=== PATIENT | male | born 1960 | race Caucasian/White ===

== ENCOUNTER 2017-09-12 12:56 | Inpatient (IN) | payer BC, OTHER ==
[2017-09-12] VITALS (7 sets, daily range): BP systolic 102–132; BP diastolic 58–104; PULSE 66–132; RESP 12–18; TEMP 97.6–98.2; O2SAT 96–99
[~2017-09-12 12:56] MED LIST: EC-N375T3 PO
[2017-09-12 13:44] LABS: AUTOMATED NEUTROPHIL # 6.3 TH/MM3 (1.8-7.7); BASOPHIL # 0.1 TH/MM3 (0-0.2); BASOPHIL % 0.7 % (0.0-2.0); EOSINOPHIL # 0.1 TH/MM3 (0-0.4); EOSINOPHIL % 0.8 % (0.0-4.0); HEMATOCRIT 43.8 % (39.0-51.0); HEMOGLOBIN 15.5 GM/DL (13.0-17.0); LYMPHOCYTE # 1.5 TH/MM3 (1.0-4.8); MEAN CELL VOLUME 89.7 FL (80.0-100.0); MEAN CORPUSCULAR HEMOGLOBIN 31.7 PG (27.0-34.0); MEAN CORPUSCULAR HGB CONC 35.3 % (32.0-36.0); MEAN PLATELET VOLUME 7.9 FL (7.0-11.0); MONO % 7.2 % (0.0-8.0); MONOCYTE # 0.6 TH/MM3 (0-0.9); NEUT % 73.3 % (16.0-70.0); PLATELET COUNT 279 TH/MM3 (150-450); RED BLOOD COUNT 4.89 MIL/MM3 (4.50-5.90); RED CELL DISTRIBUTION WIDTH 12.4 % (11.6-17.2); WHITE BLOOD COUNT 8.6 TH/MM3 (4.0-11.0)
[2017-09-12] MEDS ORDERED: DILTIAZEM INJ 125 MG in SODIUM CHLORIDE 0.9% INJ 100 ML IV PRN (13:45)
[2017-09-12] MEDS ORDERED: ASPIRIN 325 MG TAB PO ONE (13:45)
[2017-09-12] MEDS ORDERED: DILTIAZEM HCL 25 MG/5 ML VIAL IV PUSH ONE (13:45)
[2017-09-12 13:57] LABS: PROTHROMBIN TIME - PATIENT 9.8 SEC (9.8-11.6)
--- NOTE | 2017-09-12 13:58 | RADRPT ---
EXAM DATE/TIME: 09/12/2017 13:26 [place] COMPARISON: No previous studies available for comparison. INDICATIONS : Chest pains with shortness of breath, sweats, nausea. MEDICAL HISTORY : Myocardial infarction. SURGICAL HISTORY : None. ENCOUNTER: Initial ACUITY: 1 day PAIN SCORE: 8/10 LOCATION: Left chest FINDINGS: AP and lateral views of the chest demonstrate the lungs to be symmetrically aerated without evidence of mass, infiltrate or effusion. The cardiomediastinal contours are unremarkable. Osseous structure s are intact. CONCLUSION: Normal examination. Ilir Kathleen Jr., MD on September 12, 2017 at 13:55 Board Certified Radiologist. This report was verified electronically.
[2017-09-12 14:26] LABS: BICARBONATE 26.3 MEQ/L (21.0-32.0); BLOOD UREA NITROGEN 13 MG/DL (7-18); CALCIUM 9.9 MG/DL (8.5-10.1); CHLORIDE 100 MEQ/L (98-107); CREATININE 1.52 MG/DL (0.60-1.30); GLOMERULAR FILTRATION RATE 48 ML/MIN (>89); GLUCOSE,RANDOM 149 MG/DL (74-106); SODIUM (NA) 135 MEQ/L (136-145); TROPONIN I LESS THAN 0.02 NG/ML (0.02-0.05)
--- NOTE | 2017-09-12 14:56 | PD ---
HPI Chief Complaint: Chest Pain Time Seen by Provider: 13:33 Travel History International Travel<30 days: No Contact w/Intl Traveler<30days: No Traveled to known affect area: No History of Present Illness HPI 56-year-old male that presents to the ED for evaluation of chest pain and palpitations. Patient reports that he's had this since around 11:00 today. Per patient is severe. Per patient he does have a history of ACS and he was told that he had a heart attack at some point but he is never had a stent or CABG. Per patient he is managed medically. He apparently was evaluated by beater operator earlier this month and had a full set of testing that was essentially unremarkable. Apparently this was his first visit he was getting evaluated by cardiology. Per patient he went to the [facility] but he cannot tell me who was the provider who took care of him. I provided a list of names but he cannot give me an answer of who saw him. Per patient the pain is pressure-like. Per patient he feels like the heart is palpitating and the pain per patient is 7 out of 10. He did took an aspirin when this started. Per patient he accepted 2. He denies taking nitroglycerin. He denies any history of atrial fibrillation and arrhythmia in the past. He states that he has a history of smoking and continues to smoke and as well as high cholesterol and hypertension. Denies any urinary or bowel movement issues. No nausea or vomiting. No numbness or tingling. No radiation of the pain. Per patient is mainly on the left side of the chest. PFSH Past Medical History Cardiovascular Problems: Yes High Cholesterol: Yes Chest Pain: Yes Congestive Heart Failure: Yes Diabetes: No Hypertension: Yes Respiratory: Yes Influenza Vaccination: No Past Surgical History Surgical History: No Previous Surgery Family History Family Myocardial Infarction: Yes (father ()) Family Hypercholesterolemia: Yes Social History Alcohol Use: Yes (5-6 beers couple times/wek) Tobacco Use: Yes (1PPD) Substance Use: No Allergies-Medications (Allergen,Severity, Reaction): Coded Allergies: No Known Allergies (Unverified Adverse Reaction, Unknown, 09/12/17) Reported Meds & Prescriptions Reported Meds & Active Scripts Active Review of Systems Except as stated in HPI: all other systems reviewed are Neg Physical Exam Narrative GENERAL: SKIN: Warm and dry. HEAD: Atraumatic. Normocephalic. EYES: Pupils equal and round. No scleral icterus. No injection or drainage. ENT: No nasal bleeding or discharge. Mucous membranes pink and moist. Tongue is midline. No uvula deviation. NECK: Trachea midline. No JVD. CARDIOVASCULAR: Irregular rate and rhythm. No obvious murmurs, S3, S4 were hard to assess secondary to significant tachyarrhythmia RESPIRATORY: No accessory muscle use. Clear to auscultation. Breath sounds equal bilaterally. GASTROINTESTINAL: Abdomen soft, non-tender, nondistended. Hepatic and splenic margins not palpable. MUSCULOSKELETAL: Extremities without clubbing, cyanosis, or edema. No obvious deformities. NEUROLOGICAL: Awake and alert. No obvious cranial nerve deficits. Motor grossly within normal limits. Five out of 5 muscle strength in the arms and legs. Normal speech. PSYCHIATRIC: Appropriate mood and affect; insight and judgment normal. Data Data Last Documented VS Vital Signs Date Time Temp Pulse Resp B/P (MAP) Pulse Ox O2 Delivery O2 Flow Rate FiO2 09/12/17 13:52 106 12 120/65 (83) 96 Room Air 09/12/17 12:59 98.2 Orders Orders Electrocardiogram (09/12/17 13:11) Complete Blood Count With Diff (09/12/17 13:11) Basic Metabolic Panel (Bmp) (09/12/17 13:11) Ckmb (Isoenzyme) Profile (09/12/17 13:11) Troponin I (09/12/17 13:11) Iv Access Insert/Monitor (09/12/17 13:11) Ecg Monitoring (09/12/17 13:11) Oxygen Administration (09/12/17 13:11) Oximetry (09/12/17 13:11) Chest, Ap & Lat (09/12/17 ) Coag Profile (09/12/17 13:33) Aspirin (Aspirin) (09/12/17 13:45) Diltiazem Inj (Cardizem Inj) (09/12/17 13:45) Vital Signs (Adult) Q15MX4,Q4H (09/12/17 13:44) Poly Operator / Telemetry BHUPINDER.Q8H (09/12/17 13:44) Cardiac Rhythm BHUPINDER.Q8H (09/12/17 13:44) Notify Dr: Other (09/12/17 13:44) Diltiazem Inj (Cardizem Inj) (09/12/17 13:45) Admit Order (Ed Use Only) (09/12/17 15:15) Thyroid Stimulating Hormone (09/12/17 15:15) Consult Cardiology (09/12/17 ) Admit To Inpatient (09/12/17 ) Vital Signs (Adult) Q4H (09/12/17 15:14) Activity Oob With Assistance (09/12/17 15:14) Bedside Glucose BHUPINDER.CSUGAR (09/12/17 15:14) Poly Operator / Telemetry .CONTINUOUS (09/12/17 15:14) Intake + Output BHUPINDER.QSHIFT (09/12/17 15:14) Diet Heart Healthy (09/12/17 Dinner) Sodium Chlor 0.45% 1000 Ml Inj (12 Ns 1 (09/12/17 15:14) Sodium Chloride 0.9% Flush (Ns Flush) (09/12/17 15:15) Sodium Chloride 0.9% Flush (Ns Flush) (09/12/17 21:00) Comprehensive Metabolic Panel (09/13/17 06:00) Complete Blood Count With Diff (09/13/17 06:00) Case Management Consult (09/12/17 15:14) Heparin Inj (Heparin Inj) (09/12/17 15:15) Naloxone Inj (Narcan Inj) (09/12/17 15:15) Magnesium Hydroxide Liq (Milk Of Magnesi (09/12/17 15:15) Sennosides (Senokot) (09/12/17 15:15) Bisacodyl Supp (Dulcolax Supp) (09/12/17 15:15) Lactulose Liq (Lactulose Liq) (09/12/17 15:15) Inpatient Certification (09/12/17 ) Troponin I (09/12/17 19:00) Troponin I (09/13/17 01:00) Electrocardiogram (09/12/17 19:00) Electrocardiogram (09/13/17 01:00) Aspirin Ec (Ecotrin Ec) (09/13/17 09:00) Labs Laboratory Tests Test 09/12/17 13:20 White Blood Count 8.6 TH/MM3 Red Blood Count 4.89 MIL/MM3 Hemoglobin 15.5 GM/DL Hematocrit 43.8 % Mean Corpuscular Volume 89.7 FL Mean Corpuscular Hemoglobin 31.7 PG Mean Corpuscular Hemoglobin Concent 35.3 % Red Cell Distribution Width 12.4 % Platelet Count 279 TH/MM3 Mean Platelet Volume 7.9 FL Neutrophils (%) (Auto) 73.3 % Lymphocytes (%) (Auto) 18.0 % Monocytes (%) (Auto) 7.2 % Eosinophils (%) (Auto) 0.8 % Basophils (%) (Auto) 0.7 % Neutrophils # (Auto) 6.3 TH/MM3 Lymphocytes # (Auto) 1.5 TH/MM3 Monocytes # (Auto) 0.6 TH/MM3 Eosinophils # (Auto) 0.1 TH/MM3 Basophils # (Auto) 0.1 TH/MM3 CBC Comment DIFF FINAL Differential Comment Prothrombin Time 9.8 SEC Prothromb Time International Ratio 1.0 RATIO Activated Partial Thromboplast Time 25.4 SEC Blood Urea Nitrogen 13 MG/DL Creatinine 1.52 MG/DL Random Glucose 149 MG/DL Calcium Level 9.9 MG/DL Sodium Level 135 MEQ/L Potassium Level 3.9 MEQ/L Chloride Level 100 MEQ/L Carbon Dioxide Level 26.3 MEQ/L Anion Gap 9 MEQ/L Estimat Glomerular Filtration Rate 48 ML/MIN Total Creatine Kinase 97 U/L Troponin I LESS THAN 0.02 NG/ML MDM Medical Decision Making Medical Screen Exam Complete: Yes Emergency Medical Condition: Yes Medical Record Reviewed: Yes Interpretation(s) EKG shows atrial fibrillation in RVR with a heart rate in the 170s CBC & BMP Diagram 09/12/17 13:20 Calcium Level 9.9 troponin and CKMB negative Last Impressions Chest X-Ray 09/12/17 0000 Signed Impressions: Service Date/Time: August 13:26 - CONCLUSION: Normal examination. Ilir Kathleen Jr., MD coags WNL Differential Diagnosis Atrial fibrillation versus atrial fibrillation with RVR versus chest pain versus ACS versus new-onset A. fib Narrative Course 56-year-old male that presents to the ED for evaluation of atrial fibrillation. Patient was properly examined and was found to have signs and symptoms consistent with appears to be atypical for evaluation of ear. Patient's initial heart rate on the EKG was 170 and do my evaluation was 150-130. This appears to be new onset patient has no history of this in the past. No recollection of this in the past. He does have a significant history of heart disease and follows with beater operator but he does not know the name of the beater operator but he does not that he follows to the beater operator's group in [place] called the [facility]. He is a smoker. Patient was given a bolus of Cardizem with good results with a heart rate Creeping back up so patient was put on a drip. Because of patient's new onset A. fib in RVR with recommendation is for admission for further evaluation of this. Patient was discussed with my attending Dr Yuan who evaluated the patient and agrees with admission. Dr García agreed to admission. Diagnosis Primary Impression: Atrial fibrillation with RVR Admitting Information Admitting Physician Requests: Reji Camacho Sep 12, 2017 14:56
[2017-09-12] MEDS ORDERED: SENNOSIDES 8.6 MG TAB PO PRN (15:45)
[2017-09-12] MEDS ORDERED: NALOXONE HCL 0.4 MG/ML AMP IV PUSH PRN (15:45)
[2017-09-12] MEDS ORDERED: BISACODYL 10 MG SUPP RECTAL PRN (15:45)
[2017-09-12] MEDS ORDERED: SODIUM CHLORIDE 0.9% FLUSH 10 ML FLUSH IV FLUSH PRN (15:45)
[2017-09-12] MEDS ORDERED: MAGNESIUM HYDROXIDE SUSP 30 ML CUP PO PRN (15:45)
[2017-09-12] MEDS ORDERED: LACTULOSE SYRUP 20 GM/30 ML CUP PO PRN (15:45)
--- NOTE | 2017-09-12 16:29 | PD.CONS ---
HPI Consult Requested By Primary Care Physician Unknown History of Present Illness 56-year-old male with pmhx of HTN, HLD and smoker that presents to the ED for evaluation of chest pain and palpitations. Patient reports that he's had this since around 11:00 today. He has a recent unremarkable cardiac work up with Dr. Sheets. Denies any urinary or bowel movement issues. No nausea or vomiting. No numbness or tingling. No radiation of the pain. Per patient is mainly on the left side of the chest. Cardiology consulted for further evaluation and management. ECHO 08/27/2017: EF 60%, unremarkable Lexiscan 08/26/2017: Unremarkable EKG at that time: SR Review of Systems Consitutional: DENIES: Fatigue, Fever, Chills, Weight gain, Weight loss HEENT: DENIES: Lightheadedness, Change in hearing Respiratory: COMPLAINS OF: See HPI, Shortness of breath Cardiovascular: COMPLAINS OF: Chest pain, DENIES: See HPI, Palpitations, Syncope, Tachycardia Gastrointestinal: DENIES: Nausea, Vomiting, Change in bowel habits, Reflux, Bloody stools, Melena Genitourinary: DENIES: Urinary incontinence, Difficulty voiding Integumentary: DENIES: Rash Neurologic: DENIES: Tingling or numbness, Memory problems, Poor Balance, Stroke symptoms Musculoskeletal: DENIES: Joint pain, Muscle pain, Limited range of motion, Back pain Psychiatric: DENIES: Anxiety, Depression, Sleep disturbances Hematologic: DENIES: Bruising tendencies, Bleeding tendencies Endocrine: DENIES: Weight gain, Weight loss, Thyroid disease Past Family Social History Allergies: Coded Allergies: No Known Allergies (Unverified Allergy, Unknown, 09/12/17) Past Medical History HTN HLD Smoking Reported Medications Reported Meds & Active Scripts Active Active Ordered Medications Current Medications Medications (Trade) Dose Ordered Sig/Brittany Route Start Time Stop Time Status Last Admin Diltiazem HCl 125 mg/Sodium Chloride 125 ml @ 5 mls/hr TITRATE PRN IV 09/12/17 13:45 09/12/17 16:08 Sodium Chloride 1,000 ml @ 75 mls/hr [id number] IV 09/12/17 15:45 (NS Flush) 2 ml UNSCH PRN IV FLUSH 09/12/17 15:45 (NS Flush) 2 ml BID IV FLUSH 09/12/17 21:00 (Heparin Inj) 5,000 units Q8H SQ 09/12/17 16:00 (Narcan Inj) 0.4 mg UNSCH PRN IV PUSH 09/12/17 15:45 (Milk Of Magnesia Liq) 30 ml Q12H PRN PO 09/12/17 15:45 (Senokot) 17.2 mg Q12H PRN PO 09/12/17 15:45 (Dulcolax Supp) 10 mg DAILY PRN RECTAL 09/12/17 15:45 (Lactulose Liq) 30 ml DAILY PRN PO 09/12/17 15:45 (Ecotrin Ec) 81 mg DAILY PO 09/13/17 09:00 Physical Exam Vital Signs Vital Signs Date Time Temp Pulse Resp B/P (MAP) Pulse Ox O2 Delivery O2 Flow Rate FiO2 09/12/17 16:08 129 127/84 09/12/17 13:52 106 12 120/65 (83) 96 Room Air 09/12/17 12:59 98.2 132 16 118/83 (95) 99 Physical Exam GENERAL: Well-nourished, well-developed patient. SKIN: Warm and dry. HEAD: Normocephalic. EYES: No scleral icterus. No injection or drainage. NECK: Supple, trachea midline. No JVD or lymphadenopathy. CARDIOVASCULAR: Regular rate and rhythm without murmurs, gallops, or rubs. RESPIRATORY: Breath sounds equal bilaterally. No accessory muscle use. GASTROINTESTINAL: Abdomen soft, non-tender, nondistended. EXTREMITIES: No cyanosis, or edema. NEUROLOGICAL: Awake, alert, and oriented x 3. Non-focal. Laboratory Laboratory Tests Test 09/12/17 13:20 White Blood Count 8.6 Red Blood Count 4.89 Hemoglobin 15.5 Hematocrit 43.8 Mean Corpuscular Volume 89.7 Mean Corpuscular Hemoglobin 31.7 Mean Corpuscular Hemoglobin Concent 35.3 Red Cell Distribution Width 12.4 Platelet Count 279 Mean Platelet Volume 7.9 Neutrophils (%) (Auto) 73.3 Lymphocytes (%) (Auto) 18.0 Monocytes (%) (Auto) 7.2 Eosinophils (%) (Auto) 0.8 Basophils (%) (Auto) 0.7 Neutrophils # (Auto) 6.3 Lymphocytes # (Auto) 1.5 Monocytes # (Auto) 0.6 Eosinophils # (Auto) 0.1 Basophils # (Auto) 0.1 CBC Comment DIFF FINAL Differential Comment Prothrombin Time 9.8 Prothromb Time International Ratio 1.0 Activated Partial Thromboplast Time 25.4 Blood Urea Nitrogen 13 Creatinine 1.52 Random Glucose 149 Calcium Level 9.9 Sodium Level 135 Potassium Level 3.9 Chloride Level 100 Carbon Dioxide Level 26.3 Anion Gap 9 Estimat Glomerular Filtration Rate 48 Total Creatine Kinase 97 Troponin I LESS THAN 0.02 Thyroid Stimulating Hormone 3rd Gen 0.533 Result Diagram: 09/12/17 1320 09/12/17 1320 Imaging Last Impressions Chest X-Ray 09/12/17 0000 Signed Impressions: Service Date/Time: August 13:26 - CONCLUSION: Normal examination. Ilir Kathleen Jr., MD Assessment and Plan Problem List: (1) Atrial fibrillation with RVR ICD Codes: I48.91 - Unspecified atrial fibrillation Status: Acute Plan: - Cont rate control and OAC - Echo - Telemetry - Avoid electrolytes abnormalities - Keep NPO for LHC +/- PCI Risk benefits of LHC +/- PCI including but not limited to neurovascular trauma, bleeding, renal failure, stroke, emergent cardiac surgery and , have been explain to patient. He understands and agreed to proceed. Thank for the opportunity to participate in the care of this patient Further therapy to be determine Ham-Glenroy Garcia MD Sep 12, 2017 16:29
[2017-09-12] MEDS: SODIUM CHLOR 0.45% 1000 ML INJ 1,000 ML IV SCH (17:11)
--- NOTE | 2017-09-12 17:23 | HHI.HP ---
HPI [facility] Primary Care Physician Unknown Admission Diagnosis new onset a fib with rvr, hx of alcohol use, hyperglycemia Diagnoses: Travel History International Travel<30 Days: No Contact w/Intl Traveler <30 Da: No Traveled to Known Affected Are: No History of Present Illness 56-year-old male with a history of hypertension, hyperlipidemia, chronic smoking who presents with acute onset dull intermittent substernal nonradiating chest pain around 11 AM today, accompanied by palpitations. He reports feeling anxious about the chest pain and palpitations, however denies any fevers, chills , nausea, vomiting, lightheadedness, dizziness. Patient recently underwent cardiac testing with Dr. Sheets at [facility] with echocardiogram unremarkable, EF 60%, Lexiscan unremarkable, sinus rhythm. Review of Systems Performed and negative except for history of present illness and past medical history Past Family Social History Past Medical History Hypertension Hyperlipidemia Chronic smoker Past Surgical History Patient denies any surgical history Reported Medications Denies taking any medications. Allergies: Coded Allergies: No Known Allergies (Unverified Allergy, Unknown, 09/12/17) Family History Patient reports family history of myocardial infarction. Social History reports smoking 1 pack per day for about 40 years. Reports use of alcohol 5-6 drinks 2-3 times per week. Denies any issues with withdrawal. Denies any illicit drugs. Physical Exam Vital Signs Vital Signs Date Time Temp Pulse Resp B/P (MAP) Pulse Ox O2 Delivery O2 Flow Rate FiO2 09/12/17 16:27 09/12/17 16:26 114 132/104 (113) 09/12/17 16:08 129 127/84 09/12/17 13:52 106 12 120/65 (83) 96 Room Air 09/12/17 12:59 98.2 132 16 118/83 (95) 99 Physical Exam GENERAL: This is a well-nourished, well-developed patient, in no apparent distress. SKIN: No rashes, ecchymoses or lesions. Cool and dry. HEAD: Atraumatic. Normocephalic. No temporal or scalp tenderness. EYES: Pupils equal round and reactive. Extraocular motions intact. No scleral icterus. No injection or drainage. ENT: Nose without bleeding, purulent drainage or septal hematoma. Throat without erythema, tonsillar hypertrophy or exudate. Uvula midline. Airway patent. NECK: Trachea midline. No JVD or lymphadenopathy. Supple, nontender, no meningeal signs. CARDIOVASCULAR: irregular rate and rhythm without murmurs, gallops, or rubs. RESPIRATORY: Clear to auscultation. Breath sounds equal bilaterally. No wheezes , rales, or rhonchi. GASTROINTESTINAL: Abdomen soft, non-tender, nondistended. No hepato-splenomegaly , or palpable masses. No guarding. MUSCULOSKELETAL: Extremities without clubbing, cyanosis, or edema. No joint tenderness, effusion, or edema noted. No calf tenderness. Negative Homans sign bilaterally. NEUROLOGICAL: Awake and alert. Cranial nerves II through XII intact. Motor and sensory grossly within normal limits. Five out of 5 muscle strength in all muscle groups. Normal speech. Laboratory Laboratory Tests Test 09/12/17 13:20 White Blood Count 8.6 Red Blood Count 4.89 Hemoglobin 15.5 Hematocrit 43.8 Mean Corpuscular Volume 89.7 Mean Corpuscular Hemoglobin 31.7 Mean Corpuscular Hemoglobin Concent 35.3 Red Cell Distribution Width 12.4 Platelet Count 279 Mean Platelet Volume 7.9 Neutrophils (%) (Auto) 73.3 Lymphocytes (%) (Auto) 18.0 Monocytes (%) (Auto) 7.2 Eosinophils (%) (Auto) 0.8 Basophils (%) (Auto) 0.7 Neutrophils # (Auto) 6.3 Lymphocytes # (Auto) 1.5 Monocytes # (Auto) 0.6 Eosinophils # (Auto) 0.1 Basophils # (Auto) 0.1 CBC Comment DIFF FINAL Differential Comment Prothrombin Time 9.8 Prothromb Time International Ratio 1.0 Activated Partial Thromboplast Time 25.4 Blood Urea Nitrogen 13 Creatinine 1.52 Random Glucose 149 Calcium Level 9.9 Sodium Level 135 Potassium Level 3.9 Chloride Level 100 Carbon Dioxide Level 26.3 Anion Gap 9 Estimat Glomerular Filtration Rate 48 Total Creatine Kinase 97 Troponin I LESS THAN 0.02 Thyroid Stimulating Hormone 3rd Gen 0.533 Result Diagram: 09/12/17 1320 09/12/17 1320 Caprini VTE Risk Assessment Caprini VTE Risk Assessment: No/Low Risk (score <= 1) Caprini Risk Assessment Model Point Value = 1 Point Value = 2 Point Value = 3 Point Value = 5 Age 41-60 Minor surgery BMI > 25 kg/m2 Swollen legs Varicose veins or History of unexplained or recurrent spontaneous Oral contraceptives or hormone replacement Sepsis (< 1 month) Serious lung disease, including pneumonia (< 1 month) Abnormal pulmonary function Acute myocardial infarction Congestive heart failure (< 1 month) History of inflammatory bowel disease Medical patient at bed rest Age 61-74 Arthroscopic surgery Major open surgery (> 45 min) Laparoscopic surgery (> 45 min) Malignancy Confined to bed (> 72 hours) Immobilizing plaster cast Central venous access Age >= 75 History of VTE Family history of VTE Factor V Leiden Prothrombin [id number] Lupus anticoagulant Anticardiolipin antibodies Elevated serum homocysteine Heparin-induced thrombocytopenia Other congenital or acquired thrombophilia Stroke (< 1 month) Elective arthroplasty Hip, pelvis, or leg fracture Acute spinal cord injury (< 1 month) Prophylaxis Regimen Total Risk Factor Score Risk Level Prophylaxis Regimen 0-1 Low Early ambulation 2 Moderate Order ONE of the following: *Sequential Compression Device (SCD) *Heparin 5000 units SQ BID 3-4 Higher Order ONE of the following medications: *Heparin 5000 units SQ TID *Enoxaparin/Lovenox 40 mg SQ daily (WT < 150 kg, CrCl > 30 mL/min) *Enoxaparin/Lovenox 30 mg SQ daily (WT < 150 kg, CrCl > 10-29 mL/min) *Enoxaparin/Lovenox 30 mg SQ BID (WT < 150 kg, CrCl > 30 mL/min) AND/OR *Sequential Compression Device (SCD) 5 or more Highest Order ONE of the following medications: *Heparin 5000 units SQ TID (Preferred with Epidurals) *Enoxaparin/Lovenox 40 mg SQ daily (WT < 150 kg, CrCl > 30 mL/min) *Enoxaparin/Lovenox 30 mg SQ daily (WT < 150 kg, CrCl > 10-29 mL/min) *Enoxaparin/Lovenox 30 mg SQ BID (WT < 150 kg, CrCl > 30 mL/min) AND *Sequential Compression Device (SCD) Assessment and Plan Assessment and Plan //New-onset atrial fibrillation. -EKG with atrial fibrillation heart rate in the 170s on admission. Improved with Cardizem push. -We'll continue on Cardizem drip. Consult cardiology. //Chest pain. -Resolved with heart rate control. Likely demand related secondary to atrial fibrillation with RVR. reviewed EKG, telemetry with atrial fibrillation, RVR. Troponin negative 1. Trend EKGs, troponins. Cardiology following. Appreciate assistance. //hyperTension. Chronic. Blood pressure acceptable. Need for medications at this time. //Hyperlipidemia. Chronic. On no medications. As per cardiology. //Tobacco abuse. Cessation counseling provided. //Renal insufficiency. Creatinine 1.52. GFR 48. Unknown baseline. Still IV fluids. Continue to monitor. Discussed Condition With patient, nurse, ED physician. Physician Certification 2 Midnight Certification Type: Admission for Inpatient Services Order for Inpatient Services The services are ordered in accordance with Medicare regulations or non- Medicare payer requirements, as applicable. In the case of services not specified as inpatient-only, they are appropriately provided as inpatient services in accordance with the 2-midnight benchmark. Estimated LOS (days): 2 days is the estimated time the patient will need to remain in the hospital, assuming treatment plan goals are met and no additional complications. Post-Hospital Plan: Home Carter Lebron MD Sep 12, 2017 17:23
[2017-09-12] MEDS: HEPARIN SODIUM - SQ 10,000 UNITS/ML VIAL SQ SCH ×2 (17:47→23:17)
[2017-09-12] MEDS ORDERED: ACETAMINOPHEN 325 MG TAB PO PRN (20:15)
[2017-09-12] MEDS: SODIUM CHLORIDE 0.9% FLUSH 10 ML FLUSH IV FLUSH SCH (20:39)
[2017-09-13 00:02] VITALS: PULSE 63
[2017-09-13 01:49] LABS: AUTOMATED NEUTROPHIL # 3.8 TH/MM3 (1.8-7.7); BASOPHIL # 0.1 TH/MM3 (0-0.2); BASOPHIL % 0.9 % (0.0-2.0); EOSINOPHIL # 0.3 TH/MM3 (0-0.4); EOSINOPHIL % 3.9 % (0.0-4.0); HEMATOCRIT 40.6 % (39.0-51.0); HEMOGLOBIN 14.2 GM/DL (13.0-17.0); LYMPH % 24.9 % (9.0-44.0); LYMPHOCYTE # 1.6 TH/MM3 (1.0-4.8); MEAN CELL VOLUME 91.2 FL (80.0-100.0); MEAN CORPUSCULAR HEMOGLOBIN 31.8 PG (27.0-34.0); MEAN CORPUSCULAR HGB CONC 34.8 % (32.0-36.0); MEAN PLATELET VOLUME 7.6 FL (7.0-11.0); MONO % 12.1 % (0.0-8.0); MONOCYTE # 0.8 TH/MM3 (0-0.9); NEUT % 58.2 % (16.0-70.0); PLATELET COUNT 217 TH/MM3 (150-450); RED BLOOD COUNT 4.45 MIL/MM3 (4.50-5.90); RED CELL DISTRIBUTION WIDTH 12.4 % (11.6-17.2); WHITE BLOOD COUNT 6.6 TH/MM3 (4.0-11.0)
[2017-09-13 02:09] LABS: ALBUMIN 3.3 GM/DL (3.4-5.0); ALKALINE PHOSPHATASE 56 U/L (45-117); ALT (GPT) 23 U/L (12-78); AST (GOT) 13 U/L (15-37); BICARBONATE 25.7 MEQ/L (21.0-32.0); BLOOD UREA NITROGEN 19 MG/DL (7-18); CALCIUM 8.5 MG/DL (8.5-10.1); CHLORIDE 103 MEQ/L (98-107); CREATININE 1.14 MG/DL (0.60-1.30); GLOMERULAR FILTRATION RATE 67 ML/MIN (>89); GLUCOSE,RANDOM 95 MG/DL (74-106); SODIUM (NA) 136 MEQ/L (136-145); TOTAL BILIRUBIN ADULT 0.4 MG/DL (0.2-1.0); TOTAL PROTEIN 6.6 GM/DL (6.4-8.2); TROPONIN I LESS THAN 0.02 NG/ML (0.02-0.05)
[2017-09-13] MEDS: DILTIAZEM HCL 30 MG TAB PO SCH ×3 (03:49→14:06)
[2017-09-13 04:00] VITALS: PULSE 58
[2017-09-13 04:10] VITALS: BP 101/57; PULSE 60; RESP 18; TEMP 97.7; O2SAT 98
[2017-09-13] MEDS: SODIUM CHLOR 0.45% 1000 ML INJ 1,000 ML IV SCH (05:55)
[2017-09-13 07:49] VITALS: PULSE 63; PULSE 69
[2017-09-13] MEDS ORDERED: NITROGLYCERIN INJ 5 ML ONE (07:53)
[2017-09-13] MEDS ORDERED: HEPARIN SODIUM - IV 10,000 UNITS/10 ML VIAL ONE (07:53)
[2017-09-13] MEDS ORDERED: MIDAZOLAM HCL 2 MG/2 ML VIAL ONE (07:53)
[2017-09-13] MEDS ORDERED: HEPARIN-NS/PF INJ 1,000 ML ONE (07:53)
[2017-09-13] MEDS ORDERED: VERAPAMIL HCL 5 MG/2 ML VIAL ONE (07:54)
--- NOTE | 2017-09-13 08:28 | CATHPROC ---
Power Fingerprinting HIS Report Study Information Study Number Admission Scheduled Start Study Start [id number] Sep 12 2017 3:18PM 09/13/2017 Sep 13 2017 7:47AM [place] Service Cardiac Catheterization Admit Source Facility Department Emergency department [facility] - Forensic Technician Physician and Clinical Staff Initial MD Castro, Glenroy Hollow Handle Bench Worker Nasima Darnell,RN Recorder Marce hCo,RT(R) Scrub Holden Swan RCIS(BS) Procedures Performed Procedure Location (Site) Vessel Name Coronary Angiograms LCA Left Coronary Coronary Angiograms RCA Right Coronary L Heart Cath LV Gram-hand inj. LV LV Ventricle Equipment Time Rate Setter Description Size Mfg Part Number Used/Scraped TRANSDUCER, TRUWAVE [id number] 08:05 ST WILEY * Used W/STOCKCOCK *[id number] 08:05 [employer] PACK, CCL CUSTOM * Used *[id number] 08:05 [employer] SUPPORT, ARTERIAL ADULT 37497 *[id number] Used [id number] 08:09 MED[employer] JL 3.5 DXTERITY CATHETER FR 5 Used *[id number] 08:09 [employer] JR 4.0 DXTERITY CATHETER FR 5 Used *[id number] BAND, RADIAL COMPRESSION TR [id number] 08:21 [employer] MEDICAL 29CM Used LARGE 29 *[id number] 08:05 [employer] WIRE, 3MMJ .035 180CM 180CM Used *[id number] 08:05 NAMIC MANIFOLD, 4 PORT * Used *[id number] 08:05 [employer] OMNIPAQUE, 350 MG, 150ML 150ML [id number] Used [id number] 08:05 [facility] BLANKET,WARM AIR CCL * Used *[id number] SHEATH, FR6 TRANSRADIAL [id number] 08:05 [employer] FR 6 Used SLENDER 10CM *[id number] History: Current Medications Medication Dosage/Unit Route Frequency Last Date/Time Taken ASA CARDIZEM History: Allergies Allergy Reaction No Known Allergies History: Risk Factors Family History of Hypertension Dyslipidemia Previous MD Previous Heart Failure Premature CAD Yes Yes Yes Yes No Prior Valve Prior PCI Prior CABG Surgery No No No History: Symptoms/Diagnosis Selection Items Chest pain History: Stress Tests Stress or Imaging Studies Performed Yes Standard Exercise Stress Test No Stress Echo No Stress Test SPECT Stress Test SPECT Result Yes Negative Stress Test CMR No Cardiac CTA Coronary Calcium Score No No History: Arrhythmias Selection Items Atrial fibrillation History: Other Current Smoker Method Packs a Day Years Used Pack Years Yes Cigarettes 1 40 40 Labs Hgb (g/dl) Hct (%) WBC (l/cumm) Platelets (thousands) 11.60-17.00 35.00-51.00 4.00-11.00 150.00-450.00 14.2 40.6 6.6 217 Glucose (mg/dl) BUN (mg/dl) Creatinine (mg/dl) BUN:Creatinine (1:x) 74.00-106.00 7.00-18.00 0.50-1.30 10.00-20.00 95 19 1.1 17.3 Na (meq/l) K (meq/l) 136.00-145.00 3.50-5.10 136 4.1 INR (PTT:PT) 0.90-1.10 1 Troponin I (ng/ml) CPK (u/l) CPK-MB (ng/ML) 0.02-0.05 26.00-308.00 0.50-3.60 0.02 97 Not Drawn Medication Medication Total Dose (Bolus/Oral) Medication Total Dosage/Unit 1% XYLOCAINE 20 mL FENTANYL 50 mcg RADIAL COCKTAIL 5 mL (Bolus) VERSED 2 mg Medications (Bolus/Oral) Medication Time Given Dosage/Unit Administered By Reason VERSED 09/13/2017 8:12:40 AM 2 mg Nasima Darnell 2 mg VERSED given in lab by Nasima Darnell, RN in Right Hand via Peripheral IV. Ordered by Glenroy West. FENTANYL 09/13/2017 8:13:09 AM 50 mcg Nasima Darnell 50 mcg FENTANYL given in lab by Nasima Darnell, REGGIE in Right Hand via Peripheral IV. Ordered by Glenroy Dunbar. 1% XYLOCAINE 09/13/2017 8:14:35 AM 20 mL Glenroy Castro 20 mL 1% XYLOCAINE given in lab by Glenroy Castro in Right Radial via Subcutaneous. Ntg 200mcg Verapamil 2.5mg Heparin RADIAL COCKTAIL 09/13/2017 8:15:07 AM 5 mL (Bolus) Glenroy Castro 2500U 5 mL (Bolus) RADIAL COCKTAIL given in lab by Glenroy Castro in Right Radial via Radial. Using [Herlinda martyon Name]. Reason: Ntg 200mcg Verapamil 2.5mg Heparin 2500U. Medication (Drip) Medication Time Given Dosage/Unit Concentration/Unit Diluent (ml) Solution IV Solutions 09/13/2017 7:56:35 AM 50 mL (IV) 1000 NaCl .9 Patient arrived on IV Solutions in Right Hand via Peripheral IV. Pump/Drip Flow using NaCl .9. Initial Case Assessment Cardiovascular HR Rhythm NIBP Chest Pain 69 SR 152/93 0 Skin color Skin Normal Warm Dry Circulatory - Right Pulses Dorsalis Pedis Femoral Radial 2 2 2 Scale (0,1,2,3,4,d) Scale (0,1,2,3,4,d) Neurological State Oriented to time-place- Alert Moves all extremities person Respiration - General Respiration Rate SpO2 (%) (B/min) 11 100 Chronological Log Time Study Chronological Log 7:53:10 Patient arrived via Bed. 7:56:14 Patient Name, D.O.B, / Armband Verified By R.N. 7:56:15 Consent signed by the physician and the patient and verified by the Forensic Technician staff. 7:56:16 Pre-op and post- op instructions given; patient acknowledges understanding of instructions. 7:56:17 Verbal Stimulation=2 Physical Stimulation=2 Airway=2 Respiration=2 TOTAL=8. (0=absent, 1=li mited, 2=present) 7:56:24 Presedation assessment performed by Forensic Technician RN. 7:56:25 Allens test performed on the right radial and ulnar artery. 7:56:31 Patient has been NPO for More than 6Hrs. 7:56:32 Skin Breakdown- none per pt 7:56:32 Patient Warmer Placed on the Table. 7:56:33 Jessica Prominences Protected 7:56:34 A # 22 IV was noted in the Hand (right). Grade = 0 7:56:35 Patient arrived on IV Solutions in Right Hand via Peripheral IV. Pump/Drip Flow using NaCl .9. 7:56:35 History and physical on the chart or being dictated. Assessment: Initial Case, HR=69 BPM, Rhythm=SR, ELLQ=552/93 mmhg, Chest Pain=0, Color=Normal, Skin = Warm, Dry 7:56:36 Right Pulses: Tal Ped=2, Femoral=2, Radial=2 Neurological: State=Alert, Ox3, PATTERSON Respiration: Resp=11 B/min, HmM6=635 % Vitals capture started with the following parameters, Patient=Adult, Interval=5 min, Initial P lswsopc=419 mmHg, 7:59:18 Deflation Rate=5 mmHg, Cuff placed on Right Arm 7:59:58 HR=73 bpm, OXMW=807/93 mmhg, PlB2=560.0 %, Resp=11 B/min, Pain=0, Nilda=10, Hogan=2 8:00:50 Reference ECG taken 8:04:27 Right Radial and right groin prepped with 2% chlorhexidine, and draped after a 3 min. waitin g time. 8:04:59 HR=66 bpm, UPZK=801/81 mmhg, KdG5=211.0 %, Resp=11 B/min, Pain=0, Nilda=10, Hogan=2 8:07:43 MD paged 8:09:57 MD responded 8:09:58 HR=72 bpm, QBEZ=440/81 mmhg, MwY7=688.0 %, Resp=10 B/min, Pain=0, Nilda=10, Hogan=2 8:10:08 Pressure channel 1 zeroed. 8:10:34 MD arrived. 8:12:40 2 mg VERSED given in lab by Nasima Darnell, RN in Right Hand via Peripheral IV. Ordered by Glenroy Castro. 8:13:09 50 mcg FENTANYL given in lab by Nasima Darnell, REGGIE in Right Hand via Peripheral IV. Ordered by Glenroy Castro. Time Out. Correct patient, correct procedure, correct physician, power injector not loaded with contrast with surgical 8:13:43 team present. Time Out Concurred by MD and individual staff in procedure. 8:13:50 Case Start 8:14:35 20 mL 1% XYLOCAINE given in lab by Glenroy Castro in Right Radial via Subcutaneous. 8:14:42 Access site was Right Radial Artery. A SHEATH, FR6 TRANSRADIAL SLENDER 10CM FR 6 was advanced into the Radial (right) using the Brian somers 8:14:50 technique. 8:14:59 HR=67 bpm, UAGK=461/82 mmhg, CtD6=417.0 %, Resp=10 B/min, Pain=0, Nilda=10, Hogan=2 5 mL (Bolus) RADIAL COCKTAIL given in lab by Glenroy Castro in Right Radial via Radial. Using [Solution Name]. 8:15:07 Reason: Ntg 200mcg Verapamil 2.5mg Heparin 2500U. Recorded Pressure: LV, HR=77, Condition=Condition 1 8:16:29 (Left Ventricle) LV 115/5/19 8:17:00 The LV was manually injected with 6 cc's and visualized. OMNIPAQUE, 350 MG, 150ML 150ML used . Recorded Pressure: LV, Ao, HR=86, Condition=Condition 1 8:17:04 (Left Ventricle) LV 109/12/20, (Aorta) Ao 121/75/98 8:17:31 The RCA was injected and visualized at various angles. OMNIPAQUE, 350 MG, 150ML 150ML used. After removing the current catheter a JL 3.5 DXTERITY CATHETER FR 5 was advanced over a WIRE, 3M MJ .035 180CM 8:17:41 180CM. 8:18:55 The LCA was injected and visualized at various angles. OMNIPAQUE, 350 MG, 150ML 150ML used. Recorded Pressure: Ao, HR=75, Condition=Condition 1 8:19:15 (Aorta) Ao 132/78/103 8:19:49 Catheter was removed 8:19:54 Case End 8:19:56 HR=80 bpm, PDFF=905/77 mmhg, SpO2=99.0 %, Resp=11 B/min Radial Compression Device Used. 12 mLs of air placed in BAND, RADIAL COMPRESSION TR LARGE 29 29C M. Affected 8:23:04 hand 99 % O2 saturation. 8:25:55 No case complications noted. 8:25:56 Cine recording checked. 8:26:00 Bedside Report will be given. 8:26:05 Contrast Scanned 8:26:08 A Left Heart Cath was performed. 8:27:00 Patient moved to stretcher End Study - Contrast Media Used In Study Contrast Total Opened (mL) Total Used (mL) Total Wasted (mL) Omnipaque 40 40 0 End Study - Maximum Contrast Load Max Contrast Load (mL) 490.1 End Study - Radiation Exposure Fluoro Time (minutes) 1.7 End Study - Patient Disposition Complications Transferred To Interventional Outcome No Telemetry Bed No attempt made
[2017-09-13] MEDS ORDERED: MISC INFORMATION XX ONE (08:30)
--- NOTE | 2017-09-13 08:36 | EKG ---
Date Performed: 09/13/2017 Time Performed: 01:09:48 PTAGE: 57 years EKG: Sinus rhythm Inferior and lateral ST elevation - possible early repolarization Borderline ECG PREVIOUS TRACING : 09/12/2017 19.23 No change from previous tracing noted. DOCTOR: Jarad Velez Interpretating Date/Time 09/13/2017 08:35:14
[2017-09-13] MEDS ORDERED: IOHEXOL 350 MG/ML 50 ML BTL (for Cath Lab) OTHER ONE (08:57)
[2017-09-13] MEDS ORDERED: ASPIRIN EC 81 MG TABEC PO SCH (09:00)
[2017-09-13] MEDS: SODIUM CHLORIDE 0.9% FLUSH 10 ML FLUSH IV FLUSH SCH (09:00)
--- NOTE | 2017-09-13 09:18 | EKG ---
Date Performed: 09/12/2017 Time Performed: 19:23:26 PTAGE: 56 years EKG: Sinus rhythm NORMAL ECG PREVIOUS TRACING : 09/12/2017 13.10 Compared to previous tracing, sinus rhythm has replaced atr ial fibrillation, heart rate has slowed. DOCTOR: Jarad Velez Interpretating Date/Time 09/13/2017 09:17:23
[2017-09-13] MEDS ORDERED: INFLUENZA VIRUS VACCINE (QUADRIVALENT) 0.5 ML SYR IM ONE (10:00)
--- NOTE | 2017-09-13 10:22 | EKG ---
Date Performed: 09/12/2017 Time Performed: 13:10:15 PTAGE: 56 years EKG: ATRIAL FIBRILLATION WITH RAPID VENTRICULAR RESPONSE ABNORMAL ECG PREVIOUS TRACING : 12/28/2013 14.57 Compared to previous tracing, atrial fibrillation has repla erica Sinus rhythm , heart rate has increased. DOCTOR: Jarad Velez Interpretating Date/Time 09/13/2017 10:21:32
--- NOTE | 2017-09-13 11:26 | MA ---
cc: BETHANY LORD DATE 09/13/2017 DATE OF 1960 PROCEDURE PERFORMED 1. Left heart catheterization. 2. Selective right and left coronary angiography. 3. Left ventriculogram. INDICATION New-onset atrial fibrillation with RVR, chest pressure/angina. ACCESS APPROACH Right transradial. PROCEDURE DESCRIPTION Consent was signed. The patient was brought into the cardiac labor relations analyst in a fasting state. The right wrist was prepped and draped in a sterile fashion. Using 1% lidocaine for local anesthesia and a micropuncture kit a 6 [place] sheath was inserted into the right radial artery. An antispasmodic cocktail was given then selective right and left coronary angiography was performed with a JR4 and a JL3.5 diagnostic catheter. Angiography was taken in multiple views. The JR4 diagnostic catheter was introduced into the ventricle over a wire. This was followed by pressure recordings, left ventriculogram and pullback. All catheters were exchanged over a wire. The patient tolerated the procedure well without complications. Estimated blood loss was less than 10 cc. Total contrast was 40 cc. The right wrist access site was closed with a TR band. RESULTS HEMODYNAMICS The left ventricular pressure was 109/12 with an LVEDP of 20. The aortic pressure was 132/78 with a mean of 103. There was no gradient upon pullback from the left ventricle to the aorta. LEFT VENTRICULOGRAM The left ventriculogram revealed symmetrically matthew ventricle with an estimated ejection fraction of 50%. ANGIOGRAPHY 1. The left main is patent giving off the circumflex artery, LAD and a very small ramus vessel. 2. The LAD is a transapical vessel. It has no significant obstructive coronary artery disease. It is giving off one diagonal vessel which is patent and small. 3. The left circumflex artery is patent with HERNANDEZ-III flow, nonobstructive coronary artery disease. It is giving off one OM branch which is of significant size, patent with HERNANDEZ-III flow and nonobstructive coronary artery disease. The AV groove segment of the circumflex is patent with HERNANDEZ-III flow and nonobstructive coronary artery disease and is giving blood flow to the PDA. This is a co-dominant system. 4. The right coronary artery is a co-dominant system giving blood supply to the PDA as well. It has nonobstructive coronary artery disease. There is a high location RV branch. CONCLUSIONS 1. Nonobstructive coronary artery disease. 2. Preserved systolic function. 3. Mildly elevated LVEDP. RECOMMENDATIONS Continue medical therapy and aggressive medical management for primary prevention of CAD. Follow-up with Dr. Sheets upon discharge. The patient is stable to be discharged home from a cardiology standpoint. He has returned to sinus rhythm. Start oral anticoagulation for Afib and Holter upon discharge. MD GABRIEL Cartagena/BT /8:24 AM /11:09 AM MTDD
--- NOTE | 2017-09-13 11:57 | HHI.PR ---
Subjective Remarks s/p cardiac cath earlier today. in no acute distress. no chest pain or sob. Objective Vitals Vital Signs Date Time Temp Pulse Resp B/P (MAP) Pulse Ox O2 Delivery O2 Flow Rate FiO2 09/13/17 08:37 94 Room Air 09/13/17 07:49 63 09/13/17 04:10 97.7 60 18 101/57 (72) 98 09/13/17 04:00 Room Air 09/13/17 04:00 58 09/13/17 00:02 63 09/13/17 00:00 Room Air 09/12/17 23:45 98.2 66 18 111/58 (75) 98 09/12/17 20:14 74 09/12/17 19:40 97.6 72 18 102/58 (73) 98 09/12/17 17:00 98.1 93 16 120/65 (83) 98 09/12/17 16:27 09/12/17 16:26 114 132/104 (113) 09/12/17 16:08 129 127/84 09/12/17 13:52 106 12 120/65 (83) 96 Room Air 09/12/17 12:59 98.2 132 16 118/83 (95) 99 I/O 09/12/17 09/12/17 09/12/17 09/13/17 09/13/17 09/13/17 07:00 15:00 23:00 07:00 15:00 23:00 Intake Total 1720 ml Balance 1720 ml Intake Oral 720 ml IV Total 1000 ml # Voids 4 # Bowel Movements 0 Result Diagram: 09/13/17 0104 09/13/17 0104 Imaging Last Impressions Chest X-Ray 09/12/17 0000 Signed Impressions: Service Date/Time: August 13:26 - CONCLUSION: Normal examination. Ilir Kathleen Jr., MD Objective Remarks GENERAL: This is a well-nourished, well-developed patient, in no apparent distress. CARDIOVASCULAR: Regular rate and regular rhythm without murmurs, gallops, or rubs. RESPIRATORY: Clear to auscultation. Breath sounds equal bilaterally. No wheezes , rales, or rhonchi. GASTROINTESTINAL: Abdomen soft, non-tender, nondistended. Normal, active bowel sounds MUSCULOSKELETAL: Extremities without clubbing, cyanosis, or edema. NEURO: Alert & Oriented x4 to person, place, time, situation. Moves all ext x4 Procedures cardiac cath. Medications and IVs Inpatient Medications Acetaminophen (Tylenol) 650 mg Q4H PRN PO temp > 101/HERRERA Last administered on at 20:12; Start 09/12/17 at 20:15 Aspirin (Aspirin) 325 mg ONCE ONCE PO Last administered on 09/12/17at 13:48; Start 09/12/17 at 13:45; Stop 09/12/17 at 13:46; Status DC Aspirin (Ecotrin Ec) 81 mg DAILY PO ; Start 09/13/17 at 09:00 Bisacodyl (Dulcolax Supp) 10 mg DAILY PRN RECTAL SEVERE CONSITIPATION; Start at 15:45 Diltiazem HCl (Cardizem Inj) 25 mg BOLUS ONCE IV PUSH Last administered on at 13:48; Start 09/12/17 at 13:45; Stop 09/12/17 at 13:46; Status DC Diltiazem HCl (Cardizem) 30 mg Q6H PO Last administered on 09/13/17at 09:00; Start 09/13/17 at 03:00 Diltiazem HCl 125 mg/Sodium Chloride 125 ml @ 5 mls/hr TITRATE PRN IV Tachycardia Last administered on 09/12/17at 16:08; Start 09/12/17 at 13:45 Heparin Sodium (Porcine) (Heparin Inj) 5,000 units Q8H SQ Last administered on 09/12/17at 23:17; Start 09/12/17 at 16:00; Stop 09/13/17 at 08:39; Status DC Influenza Virus Vaccine (Flu (Quadrivalent) Vaccine Inj) 0.5 ml ONCE ONCE IM Last administered on 09/13/17at 11:45; Start 09/13/17 at 10:00; Stop 09/13/17 at 10:01; Status DC Lactulose (Lactulose Liq) 30 ml DAILY PRN PO SEVERE CONSITIPATION; Start at 15:45 Magnesium Hydroxide (Milk Of Magnesia Liq) 30 ml Q12H PRN PO Mild constipation ; Start 09/12/17 at 15:45 Miscellaneous Information 1 ONCE ONCE XX ; Start 09/13/17 at 08:30; Stop at 08:39; Status DC Naloxone HCl (Narcan Inj) 0.4 mg UNSCH PRN IV PUSH SEE LABEL COMMENTS; Start at 15:45 Sennosides (Senokot) 17.2 mg Q12H PRN PO Moderate constipation; Start 09/12/17 at 15:45 Sodium Chloride (NS Flush) 2 ml BID IV FLUSH Last administered on 09/13/17at 09: 00; Start 09/12/17 at 21:00 A/P Assessment and Plan New-onset atrial fibrillation. -now HR much improved on Cardizem. -start on Eliquis -holter -says that he just had an echo this month-by his mail processor. -was cleared by cardiology for discharge ( d/w today). -Chest pain. -Resolved with heart rate control. Likely demand related secondary to atrial fibrillation with RVR. reviewed EKG, telemetry with atrial fibrillation, RVR. -s/p cardiac cath -cleared by cardiology; f/u as outpatient. -hypertension. Chronic. Blood pressure acceptable. continue cardizem -Hyperlipidemia. Chronic. On no medications. As per cardiology. -Tobacco abuse. Cessation counseling provided. -acute kidney injury; resolved. Discharge Planning dc home later today with Holter- f/u; pcp and cardiology. see med list. d/w the patient and . d/w the RN. d/w the case management. Meryl Bright MD Sep 13, 2017 11:57
[2017-09-13 12:00] VITALS: BP 142/98; PULSE 63; RESP 18; TEMP 98.3; O2SAT 98
[2017-09-13] MEDS ORDERED: APIX5TAB PO (12:09)
[2017-09-13] MEDS ORDERED: CARD120C4 PO (12:09)
--- NOTE | 2017-09-15 12:46 | HM ---
Date Performed: 09/13/2017 Time Performed: 14:58:00 HOOKUP DATE: 09/13/17 02:58:00 PM Fri ANALYSIS START TIME: 09/13/2017 3:03:00 PM ANALYSIS END TIME: 09/14/2017 3:02:31 PM PATIENT AGE: 57 PATIENT HEIGHT PATIENT WEIGHT DRUG LIST PATIENT DIAGNOSIS TEST NARRATIVE: The patient's average heart rate was 79 BPM. Heart rates greater than 120 B PM were noted < 1% of the time. No episodes of bradycardia were noted. No pauses exceeding 2.0 s econds were noted. 225 ventricular ectopics, which represented < 1% of the total beat count, were noted. The highest ventricular ectopic frequency occurred from 03:00 AM to 04:00 AM Sat. During th is time 30 VE(s) occurred. Ventricular ectopics were observed as 225 isolated beat(s) only. No coup lets or runs were noted. 1 supraventricular ectopics, which represented < 1% of the total beat co unt, were noted. The highest supraventricular ectopic frequency occurred from 06:00 PM to 07:00 PM F ri. During this time 1 SVE(s) occurred. No episodes of ST depression (defined as -1.0 mm or more ) were noted in channel 1. No episodes of ST depression (defined as -1.0 mm or more) were noted in c hannel 2. No episodes of ST depression (defined as -1.0 mm or more) were noted in channel 3. TEST INTERPRETATION: Agree with the dictation above Signed by : Don Daniel
== END 2017-09-13 15:11 | disposition home or self-care (01) | DRG 287 ==
LOC: NEPE 12:56 → NEDA 15:18 → N04A 17:03
PROVIDERS: ADMIT Internal Medicine; ATTEND Internal Medicine
PROC: B2111ZZ Fluoroscopy of Multiple Coronary Arteries using Low Osmolar Contrast (ICD-10-PCS; 2017-09-13)
PROC: B2151ZZ Fluoroscopy of Left Heart using Low Osmolar Contrast (ICD-10-PCS; 2017-09-13)
PROC: 4A023N7 Measurement of Cardiac Sampling and Pressure, Left Heart, Percutaneous Approach (ICD-10-PCS; principal; 2017-09-13 08:45)
DX: I48.91 Unspecified atrial fibrillation (principal); R07.89 Other chest pain; I25.10 Atherosclerotic heart disease of native coronary artery without angina pectoris; I10 Essential (primary) hypertension; E78.5 Hyperlipidemia, unspecified; F17.210 Nicotine dependence, cigarettes, uncomplicated; Z23 Encounter for immunization
CPT/HCPCS: 71046; 80048; 80053; 80307; 82550; 82948; 83735; 84443; 84484; 85025; 85610; 85730; 90686; 93005; 93225; 93226; 93458; 96374; 99152; 99153; C1769; C1893; J1644; J2250; J3010; Q2038; Q9967